=== PATIENT | female | born 1950 | race Caucasian/White ===

== ENCOUNTER 2018-12-12 11:52 | Inpatient (IN) | payer OTHER, MEDICARE ==
[~2018-12-12] VITALS: Ht 175.3 cm; Wt 104.3 kg
[~2018-12-12 11:52] MED LIST: ALDACTONE25 MG PO; ALEVE220 M1 PO; ALLERGY RELIEF10 M1 PO; AMITIZA 24 MCG24 MC1 PO; AMOXICILLIN 50500 MG PO; APAP650 PO; AZO URINARY P97.5 MG PO; CALCIUM 500 +1 EAC5 PO; CIPROFLOXACIN500 M1 PO; ESTRADIOL TRAN1 EAC2 TOP; FLUOXETINE HCL40 MG PO; NASONEX17 GM NASAL; NEURONTIN 300300 M1 PO; NORCO 5-325 TA1 EACH PO; ONDANSETRON HCL4 M2 PO; PANTOPRAZOLE SO40 M1 PO; PROBIOTIC1 EAC1 PO; PROTONIX40 M1 PO; SODIUM BICARBO650 M3 PO; TRAMADOL 50 MG50 MG PO; TUMS DUAL ACTI1 EACH PO; VAGIFEM10 MCG VG; VITAMIN E400 UNIT PO; ZOFRAN ODT4 MG PO; ZYRTEC10 M5 PO
[2018-12-12 12:10] VITALS: BP 144/110
[2018-12-12 13:58] LABS: ABSOLUTE NEUTROPHILS 5.7 thou/uL (1.4-8.2); BASOPHILS 0.6 % (0.0-2.0); EOSINOPHILS 1.5 % (0.0-3.0); HEMATOCRIT 36.6 % (37.0-47.0); HEMOGLOBIN 11.9 gm/dL (12.0-15.0); LYMPHOCYTES 21.7 % (24.0-44.0); MCH 28.1 pg (26.0-34.0); MCHC 32.6 g/dL (28.0-37.0); MONOCYTES 6.8 % (1.0-8.0); PLATELET COUNT 121 thou/uL (150-400); POLYS 69.4 % (36.0-66.0); RBC 4.25 mil/uL (4.20-5.00); RDW 13.8 % (10.5-14.5); WBC 8.9 thou/uL (4.0-11.0)
[2018-12-12 14:18] LABS: ANION GAP 9 mmol/L (7-16); BUN 13 mg/dL (7-18); CALCIUM 8.4 mg/dL (8.5-10.1); CHLORIDE 104 mmol/L (98-107); CO2 24 mmol/L (21-32); CREATININE 0.7 mg/dL (0.6-1.0); GLUCOSE 108 mg/dL (74-106); POTASSIUM 4.8 mmol/L (3.5-5.1); SODIUM 137 mmol/L (136-145)
[2018-12-12 14:22] LABS: ALBUMIN 3.4 g/dL (3.4-5.0); LIPASE 187 U/L (73-393); SGOT 60 U/L (15-37); SGPT 39 U/L (30-65); TOTAL BILIRUBIN 0.6 mg/dL (<0.1-1.0); TOTAL PROTEIN 6.3 g/dL (6.4-8.2); TROPONIN-I <0.06 ng/mL (<0.06)
[2018-12-12 14:38] LABS: URINE BILIRUBIN NEGATIVE (Negative); URINE BLOOD NEGATIVE (Negative); URINE CLARITY CLEAR; URINE COLOR YELLOW; URINE GLUCOSE-RANDOM* NEGATIVE (Negative); URINE KETONES NEGATIVE (Negative); URINE LEUKOCYTES-REFLEX NEGATIVE (Negative); URINE NITRITE-REFLEX NEGATIVE (Negative); URINE PROTEIN (DIPSTICK) NEGATIVE (Negative); URINE SPECIFIC GRAVITY <= 1.005 (1.005-1.035); URINE UROBILINOGEN 0.2 E.U./dl (0.2-1.0)
[2018-12-12 16:33] VITALS: BP 133/69
[2018-12-12 16:59] VITALS: BP 139/55
[2018-12-12 17:15] VITALS: BP 157/74
[2018-12-12 19:04] LABS: CHOLESTEROL 151 mg/dL (<200); HDL CHOLESTEROL 49 mg/dL (>40); LDL CHOLESTEROL 86 mg/dL (<100); TC:HDL 3.1 Ratio (Not establshd); TRIGLYCERIDE 80 mg/dL (<150); VLDL 16 mg/dL (<40)
--- NOTE | 2018-12-12 19:23 | NUR ---
68 YO FEMALE ADMITTED TO 426 FROM ED. A&OX4, IV INTACT IN R UA. PT DENIES NAUSEA AND VOMITING AT THIS TIME. ORIENTED PT TO ROOM/CALL LIGHT. PT AMBULATES WITH STAND BY ASSIST.
--- NOTE | 2018-12-13 03:58 | NUR ---
ASSUMED CARE OF PT @1900 PT ASSESSED AT START OF SHIFT A&OX4 AT THIS SHIFT, IV INTACT IN RIGHT UPPER ARM. C/O PAIN IN STERNUM AREA NO CARDIAC. PAIN MEDS GIVEN FOR MGMNT SEE EMAR. EVENING MEDS GIVEN , CALL LIGHT WITHING REACH AND FALL PREC IN PLACE WILL CONT TO MONITOR TILL EOS.
[2018-12-13 05:13] VITALS: BP 150/86
--- NOTE | 2018-12-13 07:50 | EKG ---
[address] [address] ELECTROCARDIOGRAM REPORT Name: QUE LORD Room #: 426-P ADM IN .R.#: [id number] Admission: 12/12/18 Attend Phys: Vlad Chow MD Discharge: Date of : 54 Report #: [id number] THIS REPORT FOR: //name// [facility] ED Test Date: 2018-12-12 Test Time: 11:57:37 Pat Name: QUE LORD Department: Room: [facility] Gender: F Oxygen System Tester: RAMÓN : 1950 Requested By: Floridalma Neumann Order Number: [id number] MD: Justus Mariee Measurements Intervals [place] Rate: 69 P: 18 MI: 146 QRS: 10 QRSD: 95 T: 4 QT: 409 QTc: 438 Interpretive Statements Sinus rhythm Nonspecific ST segment abnormality No previous ECG available for comparison Electronically Signed On 12-13-2018 7:50:10 CDT by Justus Mariee [email or web address] <ELECTRONICALLY SIGNED> By: Justus Mariee MD, LOCATED WITHIN [facility] 12/13/18 0750 1157 56 Justus Mariee MD, FACC /EPI
[2018-12-13 07:55] VITALS: BP 136/62
[2018-12-13 08:00] VITALS: BP 131/64
--- NOTE | 2018-12-13 14:40 | NUR ---
INITIAL ASSESSMENT: Pt evaluated for d/c planning needs. Reviewed chart and spoke with nurse and pt. Pt is alert and oriented. 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 Pt was independent with ADL's and used no DME. Pt remains active in the community and is still driving. Pt lives in house with SO. Pt has walker, commode and w/c at home, but does not use. Pt has not had home health in the past. Pt plans on returning home on d/c from hospital. Will remain available to assist as needed.
[2018-12-13 16:00] VITALS: BP 130/59
[2018-12-13 16:50] VITALS: BP 143/81
--- NOTE | 2018-12-13 18:30 | NUR ---
PT ASSESSED THIS AM. MEDICATED ONCE FOR PAIN AND SLEPT MOST OF MORNING. NPO THIS AFTERNOON FOR CT ABD. HAD LARGE FORMED BM. POSSIBLE EGD AFTER CT RESULTS.
[2018-12-13 19:29] VITALS: BP 143/68
--- NOTE | 2018-12-14 01:26 | NUR ---
ASSUMED CARE OF PT @1900 PT ASSESSED AT START OF SHIFT A&O X4. DENIES PAIN, N/V. ON CLEAR LIQUIDS AND IS NPO AT MIDNIGHT FOR POSSIBLE EGD IN THE MORNING. EVENING MEDS GIVEN AND PT ROSEANN IT WELL. CALL LIGHT WITHIN REACH. HAD A CT OF THE ABD DURING THE DAY W/O CONTRAST. HAD 4 LOOSE STOOL THIS EVENING. CALLS AND LETS NEEDS KNOWN WILL CONTINUE WITH POC TILL EOS.
[2018-12-14 04:02] VITALS: BP 121/58
[2018-12-14 05:51] LABS: HEMATOCRIT 36.4 % (37.0-47.0); HEMOGLOBIN 11.9 gm/dL (12.0-15.0); MCH 28.2 pg (26.0-34.0); MCHC 32.9 g/dL (28.0-37.0); MCV 85.8 fL (80.0-100.0); RBC 4.24 mil/uL (4.20-5.00); RDW 13.5 % (10.5-14.5); WBC 6.4 thou/uL (4.0-11.0)
[2018-12-14 05:58] LABS: CALCIUM 8.8 mg/dL (8.5-10.1); CREATININE 0.8 mg/dL (0.6-1.0); POTASSIUM 3.5 mmol/L (3.5-5.1)
[2018-12-14 07:00] VITALS: BP 135/63
[2018-12-14 14:00] LABS: ALBUMIN 3.3 g/dL (3.4-5.0); DIRECT BILIRUBIN 0.2 mg/dL (<0.1-0.3); TOTAL BILIRUBIN 0.9 mg/dL (<0.1-1.0); TOTAL PROTEIN 6.5 g/dL (6.4-8.2)
[2018-12-14 15:59] VITALS: BP 135/63
--- NOTE | 2018-12-14 16:12 | NUR ---
DISCHARGE PAPERS GONE OVER WITH PATIENT, SIGNED AND COPY IN CHART. IV ACSESS DCD. ALL BELONGINGS PACKED AND SENT WITH PATIENT
[2018-12-14 16:33] VITALS: BP 135/63
[2018-12-15 06:10] LABS: IgG 779 mg/dL (700-1600)
== END 2018-12-14 16:41 | disposition home or self-care (01) | DRG 392 ==
LOC: ER 11:52 → 4E 15:12 → EROBS 15:12 → 4E 17:00 → ENTRNSPT 12-14 16:22 → 4E 12-14 16:41
PROVIDERS: Hospitalist; Nurse Practitioner; Physician Assistant; ADMIT Internal Medicine
DX: K58.1 Irritable bowel syndrome with constipation (principal); B18.1 Chronic viral hepatitis B without delta-agent; I10 Essential (primary) hypertension; Z96.652 Presence of left artificial knee joint; F32.9 Major depressive disorder, single episode, unspecified; K21.9 Gastro-esophageal reflux disease without esophagitis; M19.90 Unspecified osteoarthritis, unspecified site; H91.92 Unspecified hearing loss, left ear; K83.8 Other specified diseases of biliary tract; E66.9 Obesity, unspecified; Z68.33 Body mass index [BMI] 33.0-33.9, adult; Z90.49 Acquired absence of other specified parts of digestive tract; Z90.710 Acquired absence of both cervix and uterus; Z87.81 Personal history of (healed) traumatic fracture; Z79.899 Other long term (current) drug therapy; Z88.1 Allergy status to other antibiotic agents; Z88.5 Allergy status to narcotic agent; Z88.2 Allergy status to sulfonamides; Z88.8 Allergy status to other drugs, medicaments and biological substances; Z91.041 Radiographic dye allergy status; Z80.0 Family history of malignant neoplasm of digestive organs
CPT/HCPCS: 10084

== ENCOUNTER → 2019-05-02 | Outpatient (CLI) | payer OTHER, MEDICARE ==
--- NOTE | 2019-05-03 14:33 | SLE ---
[facility] [place] [address] POLYSOMNOGRAPHY STUDY Name: QUE OLRD Room #: REG [facility]#: [id number] Admission: 05/02/19 Attend Phys: Severo Casillas MD Discharge: Date of : 54 Report #: [id number] THIS REPORT FOR: //name// CC: Severo DECKER DATE OF SERVICE: 05/02/2019 SLEEP STUDY ATTENDING PHYSICIAN: Dr. Francis Decker. The patient is a 69-year-old who weighs 225 pounds with a BMI of 33. The patient's Hustle score was 18. The patient underwent diagnostic sleep study performed at [facility]. During the night study, the patient spent 437 minutes in bed and slept for 380 minutes with a sleep efficiency of 86%. Sleep latency was 49 minutes with a REM latency of 105 minutes. During the night study, the patient had 17 obstructive apneas, no mixed apneas, 1 central apnea and 48 hypopneas. The patient's apnea-hypopnea index was 10.4 per hour with a REM index of 19.9 per hour and a supine index of 36 per hour. EKG monitoring revealed an average heart rate of 61 beats per minute. No sustained arrhythmias observed. PLMS were seen at an index of 68 per hour and 9 per hour caused EEG arousals. Nocturnal oximetry study revealed an average oxygen saturation of 96% with a lowest of 80%. Less than one minute was spent in oxygen saturation of less than 89%. Due to low AHI, the patient did not meet the split night criteria for CPAP initiation. IMPRESSION: 1. Mild sleep apnea-hypopnea syndrome with moderate increase during REM sleep and further worsening during supine sleep. Total AHI 10.4 per hour with a REM AHI of 19.9 per hour and a supine AHI of 36 per hour. 2. No clinically significant nocturnal hypoxia. 3. Severe periodic limb movements. RECOMMENDATIONS: 1. The patient has severe subjective hypersomnia with an Hustle score of 18. [facility] [address] [place] [address] POLYSOMNOGRAPHY STUDY Name: QUE LORD Room #: REG [facility].#: [id number] Admission: 05/02/19 Attend Phys: Severo Casillas MD Discharge: Date of : 54 Report #: [id number] I would recommend treating the patient's sleep apnea with CPAP. Alternate treatment option would include oral appliance. 2. Once the patient is optimally treated, then follow up in 4-6 weeks to assess compliance with treatment and to document clinical improvement. 3. Avoid supine sleep. 4. Weight loss is strongly advised. 5. Avoid GAS ANALYST depressants. 6. Cautioned regarding driving until symptoms of sleep apnea resolve with above recommendations. <ELECTRONICALLY SIGNED> By: Severo Casillas MD 05/03/19 1433 1113 1125 Severo Casillas MD /jesus
== END ==
LOC: SLEEPLAB 11:00
DX: G47.30 Sleep apnea, unspecified (principal); G47.34 Idiopathic sleep related nonobstructive alveolar hypoventilation

== ENCOUNTER → 2019-08-05 | Outpatient (CLI) | payer OTHER, MEDICARE | LOC: SJCVCIMAG 11:53 → SJCVC 11:53 | DX: I65.23 Occlusion and stenosis of bilateral carotid arteries (principal); R94.31 Abnormal electrocardiogram [ECG] [EKG]; E04.1 Nontoxic single thyroid nodule; E78.00 Pure hypercholesterolemia, unspecified; I10 Essential (primary) hypertension; K21.9 Gastro-esophageal reflux disease without esophagitis; G47.33 Obstructive sleep apnea (adult) (pediatric); Z96.652 Presence of left artificial knee joint; Z79.899 Other long term (current) drug therapy ==

== ENCOUNTER → 2019-08-17 | Outpatient (CLI) | payer OTHER, MEDICARE ==
[~2019-08-17] MED LIST changes: +LIVALO1 MG PO; +LO-DOSE ASPIRIN81 M1 PO; +TUMS X-STR300 MG PO
== END ==
LOC: SJCVCIMAG 08:40
DX: I08.1 Rheumatic disorders of both mitral and tricuspid valves (principal); I11.9 Hypertensive heart disease without heart failure; R00.1 Bradycardia, unspecified; R94.31 Abnormal electrocardiogram [ECG] [EKG]; E78.5 Hyperlipidemia, unspecified; G47.33 Obstructive sleep apnea (adult) (pediatric)

== ENCOUNTER → 2019-08-23 | Outpatient (CLI) | payer OTHER, MEDICARE ==
[~2019-08-23] VITALS: Ht 175.3 cm; Wt 98.9 kg
[2019-08-23 07:21] LABS: HEMOGLOBIN 11.9 gm/dL (12.0-15.0); MCH 28.1 pg (26.0-34.0); MCHC 32.1 g/dL (28.0-37.0); MCV 87.7 fL (80.0-100.0); RBC 4.22 mil/uL (4.20-5.00); RDW 13.5 % (10.5-14.5); WBC 7.8 thou/uL (4.0-11.0)
[2019-08-23 07:30] VITALS: BP 109/54
[2019-08-23 07:30] LABS: CALCIUM 8.4 mg/dL (8.5-10.1); CREATININE 0.9 mg/dL (0.6-1.0); POTASSIUM 3.8 mmol/L (3.5-5.1)
--- NOTE | 2019-08-23 08:03 | EKG ---
[facility] [place] [address] ELECTROCARDIOGRAM REPORT Name: QUE LORD Everette Room #: REG [facility]#: [id number] Admission: 08/23/19 Attend Phys: Clayton Honeycutt MD, Discharge: Date of : 54 Report #: [id number] THIS REPORT FOR: cc: Barry Ahumada Kent DO Lundgren,Justus Benz MD [facility] THIS REPORT FOR: //name// [facility] Test Date: 2019-08-23 Test Time: 07:11:52 Pat Name: QUE LORD Department: Room: Gender: F Back Hand: SHAMIKA : 1950 Requested By: Clayton Honeycutt Order Number: [id number] MD: Justus Mariee Measurements Intervals [place] Rate: 56 P: 37 TX: 159 QRS: 8 QRSD: 98 T: -2 QT: 425 QTc: 411 Interpretive Statements Sinus bradycardia Otherwise normal tracing Compared to ECG 12/12/2018 11:57:37 ST (T wave) deviation no longer present Electronically Signed On 08-23-2019 8:01:27 CDT by Justus Mariee [email or web address] <ELECTRONICALLY SIGNED> By: Justus Mariee MD, [facility] 08/23/19 0801 0 0 Justus Mariee MD, [facility] /EPI
--- NOTE | 2019-08-26 11:39 | CATHLAB ---
[facility] [place] [address] INVASIVE PROCEDURE REPORT Name: RISAQUE Everette Room #: REG MELISSA Frias[facility]rell#: [id number] Admission: 08/23/19 Attend Phys: Clayton Honeycutt MD, Discharge: Date of : 54 Report #: [id number] THIS REPORT FOR: cc: Barry Ahumada Kent DO Mancuso, Gerald M. 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 The Right Groin^ was infiltrated with 1% Lidocaine subcutaneous anesthesia. A PINNACLE 6FR Sheath #[id number] sheath was inserted into the RFA^. Coronary angiography was performed using coronary diagnostic catheters. The right coronary system was accessed and visualized with a JR4 catheter. The left coronary system was accessed and visualized with a JL4 catheter. The left ventricle was accessed and visualized with a PIGTAIL catheter. Closure device was deployed with a Fr Mynx. The patient tolerated the procedure well and there were no complications associated with the procedure. There was no hematoma. Intraoperative Conscious Sedation Sedation start time: 9:06 Case end Time: [facility] [place] [address] INVASIVE PROCEDURE REPORT Name: QUE LORD [id number] Admission: 08/23/19 Attend Phys: Clayton Honeycutt, Discharge: Date of : 54 Report #: [id number] 9:36 Fentanyl 50 mcg Versed 1.5 mg Fluoro Time: 2.10 minutes Dose: DAP 3007.10 cGycm2 357 mGy Contrast Type and Amount: Omnipaque 95 ml Hemodynamics The aortic pressure is 137/59 mmHg with a mean of 89 mmHg. The left ventricular pressure is 136/12 mmHg with a mean of mmHg. The left ventricular end diastolic pressure is 28 mmHg. Conclusion 1. Normal left ventricular size and systolic function EF 55% #2 abdominal aortogram revealing no evidence of aneurysm brisk flow iliac system is widely patent. #3 left main widely patent giving rise to LAD and circumflex #4 the LAD extends around the apex there is mild irregularities to become some what of a small attenuated vessel at the apex. No occlusive disease. #5 circumflex OM is nondominant but moderate in distribution widely patent. #6 dominant right coronary artery is tortuous but widely patent no evidence of occlusive disease. Recommendations and plan continue aggressive risk factor modification. No indication for coronary intervention. Will follow discharge protocol from [facility] area. <ELECTRONICALLY SIGNED> By: Clayton Honeycutt MD, FACC 08/26/19 1138 1138 1138 Clayton Honeycutt MD, FACC /INF
== END | disposition home or self-care (01) ==
LOC: CATH 06:34
PROVIDERS: Internal Medicine Cardiovascular Disease
DX: R94.39 Abnormal result of other cardiovascular function study (principal); E78.5 Hyperlipidemia, unspecified; F32.9 Major depressive disorder, single episode, unspecified; K21.9 Gastro-esophageal reflux disease without esophagitis; Z90.49 Acquired absence of other specified parts of digestive tract; Z90.710 Acquired absence of both cervix and uterus; Z98.890 Other specified postprocedural states; Z79.899 Other long term (current) drug therapy; Z96.652 Presence of left artificial knee joint; Z88.2 Allergy status to sulfonamides; Z91.041 Radiographic dye allergy status; Z88.8 Allergy status to other drugs, medicaments and biological substances